=== PATIENT | male | born 1940 | race African-American/Black ===

== ENCOUNTER → 2020-10-11 | Outpatient (CLI) | payer MEDICARE ==
[2015-05-27 13:55] VITALS: BP 148/58
[~2020-10-11] MED LIST: ASCO500T4 PO; ASPI-630 PO; CHOL500016 PO; CIPR500T94 PO; CLONAZEPAM1 MG PO; FERR325T58 PO; GENTLE SORB IRON PO; HYDR12.575 PO; LISI20TA18 PO; MULT-658 PO; NIFE60TA90 PO; OMEP20CA16 PO; ROPI1TAB PO; TADA5TAB PO; TAMS0.4C2 PO; TRAV5DRO EACHEYE; VITA-8 PO; VITA1CAP PO; ZINC PO; [UNRECOGNIZED DRUG - CODE] OP
--- NOTE | 2020-10-11 12:15 | KCIC ---
EXAMINATION: Magnetic resonance imaging (MRI) of the lumbar spine without contrast 10/11/2020 10:25 AM HISTORY: Right S1 radiculopathy. Low back pain extending into the bilateral lower extremities with al ternating leg pain. TECHNIQUE: Multiplanar multi-weighted MRI of the lumbar spine was performed without intravenous contr ast using the standard lumbar spine protocol. Contrast information: None administered. COMPARISON: None available. FINDINGS: There is 2 mm retrolisthesis of L5 on S1. There is moderate disc height loss L5-S1 with Modic type I endplate degenerative changes. No erosion of the endplates. There is moderate to advanced disc height loss at L3-L4 and L4-L5 with Modic type II endplate degenerative changes. Conus medullaris terminate s at L1. Distal spinal cord signal intensity is normal sequences. Mild marrow edema extending into th e right L5 pedicle. No definite pars defect is identified. Abdominal aorta is normal in caliber. No s uspicious intraperitoneal abnormality is identified. Visualized portions of the sacrum appear intact. There is mild disc bulge at L1-L2 without significant neuroforaminal or spinal canal stenosis. L2-L3: Mild disc bulge. Mild facet arthropathy. No neuroforaminal or spinal canal stenosis. L3-L4: There is a circumferential disc bulge. Mild facet arthropathy. Moderate bilateral neuroforamin al stenosis, right greater than left. L4-L5: There is a circumferential disc bulge asymmetric to the right. There is a right far lateral di sc protrusion. Mild to moderate right and mild left facet arthropathy. There is ligament of flavum in folding. There is mild narrowing the right lateral recess. Severe right and mild left neuroforaminal stenosis. Mild spinal canal stenosis. Findings exacerbated by epidural lipomatosis. L5-S1: There is a central disc extrusion. There is moderate facet arthropathy. There is left lateral recess stenosis. Severe spinal canal stenosis. Severe bilateral neuroforaminal stenosis. Posteriorly projecting synovial cyst is identified along the right facet joint. This measures approximately 7 x 6 mm. 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 Electronically signed by: Meme Mesa MD (10/11/2020 12:12 PM) [id number]
== END ==
LOC: KCIC MRI 10:03
PROVIDERS: ATTEND Physical Medicine & Rehabilitation
DX: M47.27 Other spondylosis with radiculopathy, lumbosacral region (principal); M48.07 Spinal stenosis, lumbosacral region
CPT/HCPCS: 72148

== ENCOUNTER → 2020-11-18 | Outpatient (CLI) | payer MEDICARE ==
[2015-05-27 13:55] VITALS: BP 148/58
[~2020-11-18] MED LIST changes: +BRIM5DRO2 OP; +FOLI0.4T5 PO; +LATA5DRO EACHEYE; +MIRA25TA PO; +ROPI1TAB4 PO; +ZINC50TA39 PO
[2020-11-18 14:38] LABS: BASO % 0 % (0-3); EOS # 0.1 x10^3/uL (0.0-0.7); EOS % 1 % (0-3); HEMOGLOBIN 12.5 g/dL (13.0-17.5); LYMPH # 1.7 x10^3/uL (1.0-4.8); LYMPH % 31 % (24-48); MEAN CORPUSCULAR HEMOGLOBIN 31 pg (25-35); MEAN CORPUSCULAR HGB CONC 34 g/dL (31-37); MEAN CORPUSCULAR VOLUME 91 fL (79-100); MONO # 0.3 x10^3/uL (0.0-1.1); MONO % 6 % (0-9); NEUT # 3.4 x10^3/uL (1.8-7.7); NEUT % 62 % (31-73); PLATELET COUNT 214 x10^3/uL (140-400); RED BLOOD COUNT 4.06 x10^6/uL (4.30-5.70); RED CELL DISTRIBUTION WIDTH 13.6 % (11.5-14.5); WHITE BLOOD COUNT 5.5 x10^3/uL (4.0-11.0)
--- NOTE | 2020-11-18 15:01 | EKG ---
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
[2020-11-18 15:05] LABS: ALBUMIN 3.8 g/dL (3.4-5.0); CALCIUM 8.7 mg/dL (8.5-10.1); CREATININE 1.1 mg/dL (0.7-1.3); GFR 77.5; POTASSIUM 3.8 mmol/L (3.5-5.1); TOTAL BILIRUBIN 0.3 mg/dL (0.2-1.0); TOTAL PROTEIN 7.6 g/dL (6.4-8.2)
--- NOTE | 2020-11-22 18:41 | PREOP HP ---
DATE OF SERVICE: 11/24/2020 HISTORY OF PRESENT ILLNESS: The patient is a pleasant 80-year-old man who is having difficulty with low back pain and pain that radiates to his right buttock, lateral thigh and leg to the top of his right foot. He does note some symptoms in the left leg, but those are mild and intermittent. The problem began more than 6 weeks ago when he was getting up out of bed. The pain is 7/10 at its best and 10/10 at its worst. He said that he has pain virtually all the time. Moving around or changing positions can help him. He is taking hydrocodone or Tylenol. He did see Dr. Winkler and had an injection as well as oral prednisone, which did help him some. CURRENT MEDICATIONS: Aspirin, zinc, Centrum, vitamin D, vitamin B, vitamin E, finasteride, sildenafil, clonazepam, tamsulosin, ropinirole, omeprazole, hydrochlorothiazide, nifedipine, Tylenol, hydrocodone. PAST MEDICAL HISTORY: Arthritis, hypertension, kidney problems. PAST SURGICAL HISTORY: Cataracts. FAMILY HISTORY: Alzheimer disease, cancer, hypertension. 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 Single. Does not smoke. Drinks alcohol 1-2 times per week. ALLERGIES: No known drug allergies. REVIEW OF SYSTEMS: A 12-point review of systems was performed and is noncontributory except that mentioned above. PHYSICAL EXAMINATION: GENERAL: Alert, pleasant, in no acute distress. HEENT: Head is normocephalic, atraumatic. SKIN: Warm and dry. MUSCULOSKELETAL: Lumbar paraspinal muscle bulk is normal, restricted range of motion of the lumbar spine, [id number] tenderness of the lower lumbar spine with palpation, normal range of motion of the lower extremities bilaterally. EXTREMITIES: No clubbing, cyanosis or edema. NEUROLOGIC: Alert and oriented x 3. Strength is 5/5 in the lower extremities bilaterally. Sensory was intact to light touch in the lower extremities bilaterally, reflexes were present and symmetric in the lower extremities bilaterally except for an absent right ankle jerk, negative straight leg raising bilaterally, normal gait. IMAGING: I reviewed a lumbar MRI scan. On this study, there is a central disk extrusion at L5-S1. There is moderate facet arthropathy and left lateral recess stenosis. There is severe spinal canal stenosis and severe bilateral neural foraminal stenosis. ASSESSMENT AND PLAN: I believe his symptoms are related to the large disk herniation at L5-S1. I recommended lumbar microdiskectomy/microdecompression on the right. I spoke with him about the surgery including the rationale, technique and the risks involved and the expected postoperative course. He understands and would like to proceed. NAUN/ONUR/MERLYN DR: Henrique TID: [id number]
== END ==
LOC: SURGPAT 13:57
PROVIDERS: ATTEND Neurological Surgery
DX: Z01.818 Encounter for other preprocedural examination (principal); R94.31 Abnormal electrocardiogram [ECG] [EKG]
CPT/HCPCS: 36415; 80053; 85025; 87641; 93005